=== PATIENT | female | born 1985 | race Caucasian/White ===

== ENCOUNTER 2020-10-07 02:28 | Observation (INO) | payer OTHER ==
[~2020-10-07] VITALS: Ht 165.1 cm; Wt 82.2 kg
[2020-10-07 03:20] LABS: BASOPHILS % (AUTO) 1 % (0-1); EOSINOPHILS % (AUTO) 1 % (1-7); LYMPHOCYTES % (AUTO) 22 % (22-44); MEAN CORPUSCULAR HEMOGLOBIN 32.3 pg (27.0-34.8); MEAN CORPUSCULAR HGB CONC 34.6 g/dL (32.4-35.8); MEAN PLATELET VOLUME 10.1 fL (7.4-10.4); MONOCYTES % (AUTO) 10 % (2-9); NEUTROPHILS % (AUTO) 67 % (42-75); PLATELET COUNT 188 x10^3/uL (130-400); RED BLOOD COUNT 4.04 x10^6/uL (3.82-5.3); RED CELL DISTRIBUTION WIDTH 13.3 % (9.6-15.2)
[2020-10-07 03:31] LABS: FIBRINOGEN 434 mg/dL (200-340); PARTIAL THROMBOPLASTIN TIME 25 Seconds (25-31)
[2020-10-07 13:19] LABS: INTERNATIONAL NORMALIZED RATIO 0.88 (0.93-1.1); PROTHROMBIN TIME 9.5 Seconds (9.6-11.5)
[2020-10-07] MEDS ORDERED: CALCIUM CARBONATE 500 MG TAB.CHEW ONE (14:37)
[2020-10-11] MEDS ORDERED: DOCU-131 PO (10:53)
[2020-10-11] MEDS ORDERED: IBUP-1222 PO (10:53)
== END 2020-10-08 08:35 | disposition home or self-care (01) ==
LOC: LDOP 02:28 → LDIP 04:47
PROVIDERS: ADMIT Student in an Organized Health Care Education/Training Program; ATTEND Student in an Organized Health Care Education/Training Program
DX: O62.9 Abnormality of forces of labor, unspecified (principal); Y04.2XXA Assault by strike against or bumped into by another person, initial encounter; Y93.89 Activity, other specified; Y92.009 Unspecified place in unspecified non-institutional (private) residence as the place of occurrence of the external cause; Z3A.38 38 weeks gestation of pregnancy; Z87.410 Personal history of cervical dysplasia; Z79.899 Other long term (current) drug therapy
CPT/HCPCS: 36415; 59025; 76815; 85025; 85384; 85460; 85610; 85730; 86850; 86900; G0378